=== PATIENT | female | born 1975 | race Caucasian/White ===

== ENCOUNTER → 2016-07-10 | Day surgery (SDC) | payer OTHER ==
[~2016-07-10] MED LIST: BACTRIM DS TABL1 TA1 PO; CHANTIX PO; EFFEXOR XR150 MG; EFFEXOR XR150 MG PO; EFFEXOR-XR150 MG PO; FLEXERIL PO; KEFLEX500 MG PO; KETOPROFEN PO; LORTAB 5/500 TA1 TA1 PO; MEDROL4 MG/DOSE- PO; NO MEDICATIONS; PRILOSEC; PRILOSEC PO; PRILOSEC20 MG PO; SKELAXIN400 MG PO; SYMBICORT80 INH; TRAZODONE HCL150 MG PO; ZITHROMAX500 MG PO
--- NOTE | ~2016-07-10 | EKG ---
PATIENT: ANDREW AVILES UNIT #: [id number] Ventricular Rate: 75 BPM Atrial Rate: 75 BPM P-R Interval: 172 ms QRS Duration: 94 ms Q-T Interval: 410 ms QTC Calculation(Bezet): 457 ms P [place]: 33 degrees Calculated R [place]: 20 degrees Calculated T [place]: 23 degrees Diagnosis Line: Normal sinus rhythm Diagnosis Line: Poor R wave progression questionable lead position Diagnosis Line: or body habitus Early repolarization Diagnosis Line: Otherwise normal ECG Diagnosis Line: When compared with ECG of 28-JUN-2009 18:47, Diagnosis Line: No significant change was found Diagnosis Line: Confirmed by FRANCES URIOSTEGUI MD ([id number]) on 07/10/2016 Diagnosis Line: 4:42:58 PM INTERPRETING MD: GILA COLLIER
--- NOTE | ~2016-07-10 | CR63 ---
[facility] A Service of [facility] & [facility] RADIOLOGY TEXT RESULTS PATIENT: ANDREW AVILES LOCATION: [facility] : 73 UNIT #: [id number] AGE: [address]: Eboni Kapoor MD SEX: F ORDER DR: [id number] [facility] [address] [place], [place] [address] [id number] O MR#: [id number] Acc #: [id number] NAME: ANDREW AVILES : 1975 SEX: F STUDY DATE/TIME: 07/10/2016 12:38 UNIT: [facility] ROOM: STUDY DESCRIPTION: CR Chest 2 View Attending Physician: Eboni Kapoor M.D. Referring Physician: Eboni Kapoor M.D. Ordering Physician: Eboni Kapoor M.D. Primary Care Physician: Marga Virgen M.D. MEDICAL IMAGING REPORT This report is preliminary unless electronic signature is present EXAM PA and lateral chest radiograph. INDICATION Preoperative examination prior to elbow surgery. Patient also reports shortness of breath with exertion. FINDINGS Heart size is within normal limits. Lungs appear clear with no focal infiltrates identified. There is no pneumothorax or pleural effusion. No aggressive osseous abnormalities are seen. IMPRESSION No acute disease. Dictated by... Abena Hayes M.D. THIS IS AN ELECTRONICALLY VERIFIED REPORT Abena Hayes M.D. at 07/10/2016 4:53 PM AFF/tmw TD: 07/10/2016 13:48 JOB #: [id number] MEDICAL IMAGING REPORT Page 1 of 1 COPY
--- NOTE | ~2016-07-10 | OR ---
Unit #: [id number] #: [id number] Patient: ANDREW AVILES [id number] [address] [place], [place] [address] [id number] O MR#: [id number] NAME: ANDREW AVILES ROOM: Date of Procedure: 07/10/2016 Admission Date: 07/10/2016 Surgeon: Eboni Kapoor M.D. : 1975 Attending Physician: Eboni Kapoor M.D. Referring Physician: Eboni Kapoor M.D. Primary Care Physician: Marga Virgen M.D. OPERATIVE REPORT PREOPERATIVE DIAGNOSIS Lateral epicondylitis, right elbow. POSTOPERATIVE DIAGNOSIS Lateral epicondylitis, right elbow. PROCEDURE PERFORMED Lateral epicondylar release with epicondylectomy and repair of extensor right elbow. HISTORY AND FINDINGS The patient is a 40-year-old, who has been having pain and swelling in her right elbow. She had been treated conservatively with bracing, immobilization, anti-inflammatories, and injections and continues to have persistent residual pain. As she failed conservative measures, she was offered surgical intervention. Procedure was explained including risks of anesthesia and complications of surgery like infection, neurovascular injury, painful scar, residual symptoms, need for further surgery. The patient voices understanding and wishes to proceed. DESCRIPTION OF PROCEDURE After induction of general anesthesia, the patient's right elbow and forearm was prepped and draped in the usual sterile manner. Time-out was called. Operative site was confirmed. Esmarch was applied. Tourniquet was inflated to 250 mm. A lateral skin incision was made centering over the lateral epicondyle. Approximately 5 cm long incision deepened down and carried down to the deep fascia, which was incised and the common extensor origin was released of the lateral epicondyle. The patient had rather prominent lateral epicondyle, so with the release of the common extensor origin, the bony ridge of the lateral epicondyle was exposed and the degenerative tendon was excised and dissection was carried distally in line with the extensor carpi radialis brevis, following which, with excision of the degenerative tendon using an osteotome, the lateral epicondyle was osteotomized and the cut margins was rasped. Wound was irrigated. Then, the extensor origin was repaired using 0 Vicryl, 2-0 plain for the subcutaneous tissue, and 4-0 nylon for the skin. Sterile compression dressing was applied and a long-arm splint was given. Blood loss was less than 5 mL. The patient received preoperative antibiotics. Tolerated the procedure well and was transferred to the recovery room in satisfactory condition. POSTOPERATIVE INSTRUCTIONS Unit #: [id number] #: [id number] Patient: ANDREW AVILES 1. Ice packs to the right elbow, range of motion to the fingers, continue with the long-arm splint immobilization. 2. [place] 7.5 mg p.o. q.6 hours p.r.n. 3. She was given a followup appointment. Return to my office in two weeks. If any problems, to contact me. Dictated by... Brigida Shoemaker/vilma TD: 07/11/2016 06:14 JOB #: [id number] OPERATIVE REPORT Page 1 of 1 X Eboni Kapoor MD X PROCEDURE OPERATIVE NOTE
[2016-07-10 12:19] LABS: BASOPHIL# 0.1 X10e3 (0-0.3); BASOPHIL% 0.9 % (0-2.5); EOSINOPHIL# 0.1 X10e3 (0-0.7); EOSINOPHIL% 0.9 % (0.0-7.0); HEMATOCRIT 40.5 % (35.0-45.0); HEMOGLOBIN 13.6 gm/dL (12.0-16.0); LYMPHOCYTE# 1.7 X10e3 (1.0-3.5); LYMPHOCYTE% 21.5 % (17.0-45.0); MEAN CELL VOLUME 87.6 FL (83-96); MEAN CORPUSCULAR HEMOGLOBIN 29.5 PG (28-34); MEAN CORPUSCULAR HGB CONC 33.7 g/dL (30-36); MONOCYTE# 0.4 X10e3 (0-1.0); MONOCYTE% 5.2 % (3.0-12.0); NEUTROPHIL# 5.7 X10e3 (1.5-7.1); NEUTROPHIL% 71.5 % (40-75); PLATELET COUNT 515 X10e3 (140-420); RED BLOOD COUNT 4.62 X10e (3.90-5.30); RED CELL DISTRIBUTION WIDTH 15.3 % (11.0-15.5)
[2016-07-10 12:24] LABS: DIFF IND NO
[2016-07-10 12:49] LABS: BUN/CREATININE RATIO 14.44; CALCIUM SERUM 8.9 mg/dL (8.4-10.2); CREATININE SERUM 0.9 mg/dL (0.6-1.4); GLOM FILT RATE Estimated 79.5 mL/min (>60); POTASSIUM 3.9 mmol/L (3.5-5.1)
[2016-07-10 13:51] LABS: URINE APPEARANCE CLEAR; URINE BILIRUBIN NEG (NEG); URINE BLOOD NEG (NEG); URINE COLOR YELLOW; URINE GLUCOSE NEG (NEG); URINE KETONE NEG (NEG); URINE LEUKOCYTE ESTERASE TRACE (NEG); URINE NITRATE NEG (NEG); URINE PH 6.5 (5-8); URINE PROTEIN NEG (NEG); URINE SPECIFIC GRAVITY 1.019 (1.003-1.035)
[2016-07-10 13:54] LABS: CULTURE INDICATED? NO; URBCS1 AUWI 0-2 /[HPF] (0-2); URINE BACTERIA AUWI NEG (NEGATIVE); URINE SQUAMOUS EPITHELIAL CELL FEW /[HPF]
== END | disposition home or self-care (01) ==
LOC: CSUR 10:58
PROVIDERS: Orthopaedic Surgery
DX: M77.11 Lateral epicondylitis, right elbow (principal); J44.9 Chronic obstructive pulmonary disease, unspecified; K21.9 Gastro-esophageal reflux disease without esophagitis; Z90.49 Acquired absence of other specified parts of digestive tract; Z79.899 Other long term (current) drug therapy; Z87.891 Personal history of nicotine dependence
CPT/HCPCS: 71020; 80048; 81003; 85025; 93005; J0690; J1100; J2250; J3010